=== PATIENT | male | born 1985 | race Caucasian/White ===

== ENCOUNTER 2017-10-23 10:14 | Emergency (ER) | payer MEDICAID ==
[~2017-10-23] VITALS: Ht 172.7 cm; Wt 86.2 kg
--- NOTE | 2017-10-23 10:39 | NUR ---
Patient discharged to home in stable conditon. Written and verbal after care instructions given. Patient verbalizes understanding of instructions.
[2017-10-23 10:40] VITALS: BP 156/89
== END 2017-10-23 10:41 | disposition home or self-care (01) ==
LOC: ER 10:14
DX: G47.00 Insomnia, unspecified (principal); J45.909 Unspecified asthma, uncomplicated; F17.210 Nicotine dependence, cigarettes, uncomplicated; Z88.0 Allergy status to penicillin; Z88.1 Allergy status to other antibiotic agents
CPT/HCPCS: 99283; A4663